=== PATIENT | male | born 1995 | race Caucasian/White ===

== ENCOUNTER 2020-08-21 23:02 | Emergency (ER) | payer MEDICAID, SELFPAY ==
[2020-08-21 23:26] VITALS: BP 150/85; PULSE 92; RESP 18; TEMP 37.3; O2SAT 98; BMI 26.2
--- NOTE | 2020-08-21 23:36 | ED_ITS ---
HPI - Male Genitourinary General Chief complaint: Urogenital-Male Stated complaint: pain when urinating Time Seen by Provider: 08/22/20 00:23 Source: patient Mode of arrival: ambulatory Limitations: no limitations History of Present Illness HPI Narrative: Patient presents to ED for dysuria for the past 4 days. Patient denies any penile lesions, penile discharge, testicular pain, testicular swelling, or recent trauma. Patient states he had negative urine test at an urgent care, and negative UA test this morning at [facility]. Patients he was informed possibility needs to be tested for STI and be treated. Related Data Previous Rx's Medication Instructions Recorded naproxen 500 mg PO BID PRN #20 tab 08/22/20 Allergies Allergy/AdvReac Type Severity Reaction Status Date / Time No Known Allergies Allergy Verified 08/21/20 23:24 Review of Systems Review of Systems: Yes all other systems are reviewed and are negative Constitutional: Constitutional: Reports as per HPI and Reports no additional constitutional complaints Eyes: Eyes: Reports as per HPI and Reports no additional eye complaints ENT: Reports system reviewed and no additional complaints, except as documented and Reports as per HPI Cardiovascular: Cardiovascular: Reports as per HPI and Reports no additional cardiovascular complaints Respiratory: Respiratory: Reports as per HPI and Reports no additional respiratory complaints Gastrointestinal: Gastrointestinal: Reports as per HPI and Reports no additional gastrointestinal complaints Genitourinary: Genitourinary: Reports no additional male genitourinary complaints, Reports as per HPI, Denies hematospermia, Denies change in libido, D enies hematuria, Denies oliguria, Denies difficulty urinating, Denies difficulty with ejaculations, Denies erectile dysfunction, Denies genital lesions, Denies genital pain, Reports dysuria, Denies flank pain, Denies nocturia, Denies painful ejaculations, Denies penile discharge, Denies scrotal swelling, Denies testicular mass, Denies testicular pain, Denies urinary frequency, Denies urinary hesitancy, Denies urinary incontinence and Denies urinary urgency Musculoskeletal: Musculoskeletal: Reports no additional musculoskeletal complaints and Reports as per HPI Neurologic: Reports system reviewed and no additional complaints, except as documented and Reports as per HPI Psychiatric: Psychiatric: Reports no additional psychiatric complaints, Reports as per HPI and Denies change in libido Endocrine: Endocrine: Denies change in libido [facility] Past Medical History Medical History (Updated 12/17/20 @ 00:42 by AUSTIN Gonzalez) No known health problems Social History Social History Advance Directives: No Physical Exam Vital Signs: Vital Signs: Last Vital Signs Temp 99.2 F 08/21/20 23:26 Pulse 92 08/21/20 23:26 Resp 18 08/21/20 23:26 BP 150/85 H 08/21/20 23:26 Pulse Ox 98 08/21/20 23:26 Body Mass Index 26.2 Const: General: cooperative, healthy appearing, comfortable, no acute distress, well developed, alert, awake, Physically active and acute distress Orientation/consciousness: patient oriented x3 HENMT: Head: Yes normal to inspection and Yes No palpable skull fracture present Eyes: General: appearance normal, both eyes and all related structures Neck: Neck: Yes normal visual inspection, Yes full ROM, Yes no lymphadenopathy, Yes no meningeal signs, Yes trachea midline, Yes supple and No tender Chest: Chest palpation & inspection: normal inspection of the chest, normal palpation of entire chest wall and no localized rib tenderness Resp: Effort & Inspection: normal respiratory effort, able to speak in complete sentences and uses accessory muscles Cardio: Jugular venous distension: no JVD Heart sounds: S1 normal heart sound present and S2 normal heart sound present GI: Inspection: Yes normal to inspection and No abdominal wall ecchymosis Palpation (GI): Soft to palpation, not firm, nontender, no guarding and not rigid : General: No CVA tenderness and Yes no CVA tenderness Male General Exam: No Genital lesions present Penis: normal penis, circumcised, not edematous, not erythematous, no masses, no nodules, no swelling, no ulcerations and No Genital lesions present Scrotum: scrotum normal, no ecchymosis, not edematous, not erythematous, No testes descended bilaterally, no hydroceles, no inguinal hernias, no masses, no scrotal swelling, no spermatoceles, no ulcerations and no varicoceles Testes: Testes normal, testicular lie normal, epididymides normal, tesicle present, testicles not atrophic, no blue dot sign, not enlarged, no epididymal induration, no epidiymal masses, no epidiymal tenderness, no masses, no testicular mass, no testicular swelling, no testicular tenderness, normal testicular lie, No testicular atrophy and other Back/Spine/Pelvis: Back: no CVA tenderness, No CVA tenderness and No back tenderness Skin: General skin exam: no rashes or lesions noted Neuro: General: patient oriented x3, gait normal, no meningeal signs and CN's II-XI intact bilaterally Cranial nerves: Yes CN's II-XII intact bilaterally Extrem: General: Yes normal to inspection and Yes full ROM Psych: Appearance: grossly normal, well kempt and not disheveled Course Course Course Narrative: Patient will have urinalysis sent and chlamydia gonorrhea sample sent. Patient will be treated empirically for chlamydia and gonorrhea. Reevaluation(s) Reevaluation #1: Most of urinalysis could not be performed due to color of urine. Patient is taking Pyridium for relief. Patient was offered ceftriaxone azithromycin for prophylactic and he refused and firmly states he does not have STI and is in a monogamous relationship. Patient informed since he is taking Pyridium he has to call his PCP tomorrow to get a repeat UA to make sure there is no positive nitrite or leuk esterase. Once again within 24 hours patient has had 2 negativeurine analysis test. Time: 20:40 MDM - Male Genitourinary MDM Narrative Medical decision making narrative: Dysuria Lab Data Labs: Lab Results 08/21/20 Range/Units 23:49 Urine Color ORANGE Urine Appearance CLEAR Urine pH TNP Ur Specific [place] TNP Urine Protein TNP Urine Glucose (UA) TNP Urine Ketones TNP Urine Blood TNP Urine Nitrite TNP Ur Leukocyte Esterase TNP Urine RBC 0-2 (0) /HPF Urine WBC 0-2 (0-4) /HPF Ur Squamous Epith Cells TRACE /LPF Urine Bacteria TRACE /LPF Discharge Plan Discharge Clinical Impression: Dysuria Patient Disposition: Home, Self-Care Instructions: Dysuria (ED) Additional Instructions: Return to the ED immediately for flank pain, fever, chills, testicular pain, penile lesions, penile discharge, nausea, vomiting, abdominal pain, any other concerning symptoms. Recommend repeat urinalysis with PCP as soon as possible. Prescriptions: New naproxen 500 mg tablet 500 mg PO BID PRN (Reason: pain) Qty: 20 RF: 0 Interventions: ED Discharge Assessment Last Done: 08/22/20 01:01 Discharge Date/Time: 08/22/20 01:05 Print Language: Estonian
[2020-08-22 00:07] LABS: Appearance Urine CLEAR; Color Urine ORANGE
[2020-08-22 00:13] LABS: Bacteria Urine TRACE /LPF; RBC Urine 0-2 /HPF (0); Squamous Epithelial Cell Urine TRACE /LPF; WBC Urine 0-2 /HPF (0-4)
[2020-08-22] MEDS: NaPROXEN 500 MG TABLET PO (00:57)
--- NOTE | 2020-08-22 01:04 | PC.NURSE ---
PT REFUSING TO BE TREATED TODAY FOR STD AND STATE HE HAS BEEN WITH THE SAME PERSON FOR 7 YEARS PT WILL WAIT FOR TEST RESULTS.
[2020-09-15 09:15] LABS: CT PCR NOT DETECTED (Not Detect.); NG PCR NOT DETECTED (Not Detect.)
== END 2020-08-22 01:05 | disposition home or self-care (01) ==
PROVIDERS: Physician Assistant; Emergency Provider Student in an Organized Health Care Education/Training Program
DX: R30.0 Dysuria (principal); R36.9 Urethral discharge, unspecified
CPT/HCPCS: 81003; 87491; 87591; 96372; 99283; 99284